=== PATIENT | female | born 1950 | race Caucasian/White ===

== ENCOUNTER 2019-01-27 15:26 | Observation (INO) | payer MEDICARE ==
[~2019-01-27] VITALS: Ht 154.9 cm; Wt 44.5 kg
--- NOTE | ~2019-01-27 | HP ---
PATIENT: ERNIE MOCK MEDICAL RECORD: [id number] ACCOUNT: [id number] LOCATION:[address] : 52 ADMISSION DATE: 01/27/19 PCP: KRISTAN REINA MD HISTORY AND PHYSICAL EXAMINATION DIAGNOSES: 1. Epigastric pain. 2. Withdrawal symptomatology from chronic pain meds. 3. Hypertension. 4. Hyperlipidemia. HISTORY OF PRESENT ILLNESS: Mrs. Mock presented to the Emergency Room with epigastric pain. She denies any chest pain. The ER doctor thought she had some degree of chest pain. She was recently taken off from long-acting morphine by her primary care physician. She was very tremulous and shaky. She did received Xanax. She is better today. Her troponins are normal. EKG is with no changes. She had no dysrhythmias. PHYSICAL EXAMINATION: GENERAL APPEARANCE: Well-nourished, well-developed, appears stated age. Level of distress, comfortable. PSYCHIATRIC: Mental status, alert, normal affect. Orientation, oriented to time, place and person. EYES: Lids and conjunctiva, noninjected. No discharge, no pallor. ENT: Lips, teeth, gums, normal dentition. Oropharynx, no cyanosis, no pallor. NECK: Carotid arteries, bilateral normal upstroke, no bruits, no thrills. JUGULAR VEINS: No jugular venous pressure or distention. CERVICAL LYMPH NODES: Nontender, nonenlarged. THYROID: Not enlarged. Nontender. No nodules. LUNGS: Respiratory effort, unlabored. CHEST: Normal curvature. No thoracic deformity. No chest wall tenderness. Percussion, resonant. Auscultation, clear. No wheezes, no rales, no rhonchi. CARDIOVASCULAR: Precordial exam, nondisplaced. No heaves or pericardial thrills. Rate and rhythm, regular. Heart sounds, normal S1, normal S2. No S3, no gallop, no rub. Systolic murmur, not heard. Diastolic murmur, not heard. EXTREMITIES: No cyanosis, no edema. Peripheral pulses, full and equal in all extremities, except as noted. No bruits appreciated. ABDOMEN: Soft, nondistended. Normal aorta. No bruit. Nontender. No masses. Liver, nontender, no hepatomegaly. Spleen, nontender, no splenomegaly. MUSCULOSKELETAL: No joint tenderness. No joint swelling. No erythema. NEUROLOGICAL: Normal gait, normal strength, normal tone. SKIN: Warm and dry. OVERALL IMPRESSION: This is withdrawal symptomatology. This is not cardiac in nature. No other cardiac workup or treatment is necessary. TRANSINT:[id number] Voice Confirmation ID: [id number] DOCUMENT ID: [id number] HISTORY AND PHYSICAL [id number] ERNIE MOCK JEFFREY MD CC: [id number] DICTATION DATE: 01/28/19 1024 FLATWORK PRESSER: 01/28/19 1153 DIS IN 01/28/19 [facility] [address] [place] [address]
--- NOTE | ~2019-01-27 | DS ---
PATIENT:ERNIE MOCK :52 MEDICAL RECORD: [id number] DISCHARGE SUMMARY ADMISSION DATE: 01/27/19 DISCHARGE DATE: 01/28/19 DIAGNOSES: 1. Epigastric pain. 2. Withdrawal symptoms. HISTORY OF PRESENT ILLNESS: Mrs. Mock was recently taken off for long-acting morphine that she had been on for quite some time, presented in the ER with withdrawal symptoms. There was a question of chest pain. She denies any chest pain. Her troponin is normal. EKG is normal. No other cardiac workup or treatment is necessary. Follow up with her primary care doctor to discuss the issue of the long-acting morphine. TRANSINT:[id number] Voice Confirmation ID: [id number] DOCUMENT ID: [id number] ANJALI GOMEZ MD CC: [id number] DICTATION DATE: 01/28/19 1026 SCRAP WHEELER: 01/28/19 1221 DIS IN 01/28/19 [facility] [address] [place] [id number]
[~2019-01-27 15:26] MED LIST: CO Q-10200 MG PO; LEVORPHANOL TART2 MG PO; LYRICA75 MG PO; METOPROLOL TART50 MG PO; PLAVIX75 MG PO; PRAVACHOL40 MG PO; VITAMIN B COMPL1 TAB PO; VITAMIN B-122500 MCG PO; VITAMIN D2000 UNIT PO; XANAX1 MG PO; ZONEGRAN100 MG PO
[2019-01-27 15:44] VITALS: BP 145/67
[2019-01-27 16:00] VITALS: BP 129/66
[2019-01-27 16:06] LABS: BASOPHILS 0.5 % (0-2); EOSINOPHILS 0.6 % (0-7); HEMATOCRIT 41.6 % (36.0-48.0); HEMOGLOBIN 14.1 g/dL (12-16); IMMATURE GRANULOCYTES 0.2 % (0-5); LYMPHOCYTES 36.3 % (15-50); MCH 30.9 pg (26.0-34.0); MCHC 33.9 g/dL (31.0-37.0); MCV 91.2 fL (80.0-100.0); MONOCYTES 8.6 % (2-11); NEUTROPHILS 53.8 % (40-80); PLATELET COUNT 150 10x3/uL (130-400); RBC 4.56 10x6/uL (4.00-5.40); RDW 13.9 % (11.5-14.5); WBC 6.5 10x3/uL (4.8-10.8)
[2019-01-27 16:17] LABS: ALBUMIN 3.2 g/dL (3.4-5.0); ALKALINE PHOSPHATASE 87 U/L (46-116); ALT (SGPT) 26 U/L (10-68); BILIRUBIN - TOTAL 0.41 mg/dL (0.2-1.3); CALC OSMOLALITY 289 mosm/kg (275-300); CALCIUM 8.9 mg/dL (8.5-10.1); CARBON DIOXIDE 25.2 mmol/L (21.0-32.0); CHLORIDE - SERUM 109 mmol/L (98-107); CREATININE - SERUM 1.2 mg/dL (0.6-1.3); GLUCOSE 110 mg/dL (74-106); POTASSIUM - SERUM 4.2 mmol/L (3.5-5.1); PROTEIN - SERUM 7.4 g/dL (6.4-8.2); SODIUM 144 mmol/L (136-145); UREA NITROGEN 18 mg/dL (7-18); eGFR NON AFRICAN AMERICAN 47 mL/min (90-120)
[2019-01-27 16:36] LABS: INR 1.21 (0.85-1.17); PROTIME 14.8 SECONDS (11.6-15.0)
[2019-01-27 16:37] LABS: APTT 50.2 SECONDS (22.8-39.4)
[2019-01-27 16:41] LABS: CKMB 7.1 U/L (0.0-3.6); CREATINE KINASE 84 UL (21-215); MAGNESIUM - SERUM 1.9 mg/dL (1.8-2.4)
[2019-01-27 16:51] LABS: TROPONIN-I < 0.017 ng/mL (0.000-0.060)
[2019-01-27 17:00] VITALS: BP 136/60
[2019-01-27 17:06] LABS: AMYLASE - SERUM 102 U/L (25-115); LIPASE 226 U/L (73-393)
[2019-01-27 17:30] VITALS: BP 136/70
--- NOTE | 2019-01-27 18:25 | NUR ---
TRANSFER FROM ER BY W/C. ORIENTED TO ROOM. CALL LIGHT IN REACH. WILL CONT. PLAN OF CARE.
--- NOTE | 2019-01-27 19:14 | NUR ---
RESUMING PATIENT CARE. PATIENT IS ALERT AND ORIENTED, RESTING COMFORTABLY IN BED. RESPIRATIONS ARE EVEN AND UNLABORED. NO S/S OF DISTRESS. NO C/O PAIN. PATIENT IS UPSET, SHE STATED THAT SHE HASN'T HAD MEDS IN 3 HOURS. PATIENT ARRIVED ON THE FLOOR AT 1830. EXPLAINED TO PATIENT THAT SHE WAS MY FIRST PRIORITY. I JUSTED NEEDED TO CHECK ON MY OTHER PATIENTS. CALL LIGHT WITHIN REACH. WILL CPOC.
[2019-01-27 20:00] VITALS: BP 93/52
[2019-01-27 20:03] VITALS: BP 136/68; Ht 154.9 cm; Wt 44.5 kg
[2019-01-27] MEDS ORDERED: MORPHINE IMMEDI15 MG PO (20:40)
[2019-01-28] VITALS: BP 101/54
--- NOTE | 2019-01-28 01:45 | NUR ---
PATIENT RESTING COMFORTABLY IN BED. RESPIRATIONS ARE EVEN AND UNLABORED. NOS/S OF DISTRESS. FAMILY AT BEDSIDE. CALL LIGHT WITHIN REACH. WILL CPOC.
[2019-01-28 04:00] VITALS: BP 101/54
[2019-01-28 06:51] LABS: BASOPHILS 0.3 % (0-2); EOSINOPHILS 2.4 % (0-7); HEMATOCRIT 38.9 % (36.0-48.0); HEMOGLOBIN 12.7 g/dL (12-16); LYMPHOCYTES 47.4 % (15-50); MCH 30.1 pg (26.0-34.0); MCHC 32.6 g/dL (31.0-37.0); MCV 92.2 fL (80.0-100.0); MEAN PLATELET VOLUME 12.7 fL (7.4-10.4); MONOCYTES 8.4 % (2-11); NEUTROPHILS 41.5 % (40-80); PLATELET COUNT 129 10x3/uL (130-400); RBC 4.22 10x6/uL (4.00-5.40); RDW 14.2 % (11.5-14.5); WBC 5.8 10x3/uL (4.8-10.8)
[2019-01-28 07:00] LABS: CALC OSMOLALITY 288 mosm/kg (275-300); CALCIUM 8.6 mg/dL (8.5-10.1); CARBON DIOXIDE 23.5 mmol/L (21.0-32.0); CHLORIDE - SERUM 110 mmol/L (98-107); CREATININE - SERUM 1.1 mg/dL (0.6-1.3); GLUCOSE 79 mg/dL (74-106); POTASSIUM - SERUM 3.9 mmol/L (3.5-5.1); SODIUM 144 mmol/L (136-145); UREA NITROGEN 20 mg/dL (7-18); eGFR NON AFRICAN AMERICAN 52 mL/min (90-120)
[2019-01-28 07:05] LABS: TROPONIN-I < 0.017 ng/mL (0.000-0.060)
[2019-01-28 08:15] VITALS: BP 114/67
--- NOTE | 2019-01-28 10:24 | NUR ---
IV AND TELEMETRY DCD. DC PAPERS GIVEN. DAUGHTER UPSET BECAUSE DR. GOMEZ WOULD NOT DO CARDIAC CATH AND WANTS TO KNOW WHATS PAOLA ON. DR GOMEZ CALLED BACK TO ROOM AND SPOKE TO DAUGHTER TO EXPLAIN WHY. STILL NOT SATIFIED WITH HIS REPLY, ASKED TO SPEAK TO [employer] BLASTING. GAVE HER HOUSE SUPERVISORS NUMBER BUT KNOW ONE ANSWERED. DOES NOT WANT TO WAIT. GAVE HER RESEASE OF MEDICAL RECORDS FORM TO FILL OUT SO SHE COULD GO DOWNSTAIRS TO GET HER RECORDS TO TAKE WITH THEM ELSEWHERE. I COULD NOT GIVE HER THE ANSWERS SHE WAS WANTING. DAUGHTER ESCORTED HER MOTHER VIA W/C TO MEDICAL RECORD, NE HOME.
--- NOTE | 2019-01-28 17:18 | MORECARE ---
CASE MANAGEMENT DISCHARGE SUMMARY PATIENT: ERNIE MONTALVO UNIT: [id number] ADM DATE: 01/27/19 AGE: 68 : 52 SEX: F ROOM/BED: D.4635 AUTHOR: SHYLA NARVAEZ PHYSICIAN: REFERRING PHYSICIAN: ANJALI GOMEZ MD DATE OF SERVICE: 01/28/19 Discharge Plan Patient Name: ERNIE MONTALVO Facility: [facility]:[place] : 1950 Planned Disposition: Home Anticipated Discharge Date: 01/28/19 Discharge Date: 01/28/2019 Expected LOS: 1 Initial Reviewer: [email or web address] Initial Review Date: 01/28/2019 Generated: 01/28/19 6:18 pm Patient Name: ERNIE MONTALVO Page [id number] at 1718 All edits/amendments must be made on the electronic document DICTATION DATE: 01/28/191717 NET SQL DEVELOPER: ADELA 01/28/191717 RPT#: [id number] DC DATE:01/28/19 STATUS: DIS IN [facility] [address] [place] [address] END OF REPORT
== END 2019-01-28 10:33 | disposition home or self-care (01) ==
LOC: D.ER 15:26 → D.M2 17:47 → OBSVTIME 18:00 → D.M2 01-28 10:33
PROVIDERS: Family Medicine; ADMIT Internal Medicine Interventional Cardiology; ATTEND Internal Medicine Interventional Cardiology
DX: R10.13 Epigastric pain (principal); F19.939 Other psychoactive substance use, unspecified with withdrawal, unspecified; I10 Essential (primary) hypertension; E78.5 Hyperlipidemia, unspecified

== ENCOUNTER → 2021-02-08 10:26 | Outpatient (CLI) | payer MEDICARE, MEDICAID ==
[2019-01-27 20:03] VITALS: BMI 18.5
[~2021-02-08 10:26] MED LIST changes: +MORPHINE IMMEDI15 MG PO
== END | disposition home or self-care (01) ==
LOC: D.RT 10:26
PROVIDERS: ATTEND Family Medicine
DX: J43.9 Emphysema, unspecified (principal)